=== PATIENT | male | born 1970 | race American Indian/Alaskan Native ===

== ENCOUNTER 2021-04-02 05:48 | Day surgery (SDC) | payer OTHER ==
[2021-04-02] MEDS ORDERED: LACTATED RINGERS 1,000 ML ONE (06:48)
[2021-04-02] MEDS ORDERED: propofoL 200 MG/20 ML VIAL IV ONE (07:27)
[2021-04-02] MEDS ORDERED: fentaNYL 100 MCG/2 ML INJ ONE ×2 (07:27→09:37)
[2021-04-02] MEDS ORDERED: LIDOCAINE MPF (2%) 20 MG/1 ML VIAL 5 ML ONE (07:27)
--- NOTE | 2021-04-02 07:33 | Anesthesia Day of Surgery ---
Anesthesia Day of Surgery - Day of Surgery Patient Examined: Yes Patient H&P Reviewed: Yes Patient is NPO: Yes
--- NOTE | 2021-04-02 07:33 | Anesthesia Consultation ---
Anesthesia Consult and Med Hx Date of service: 04/02/21 - Airway Anesthetic Teeth Evaluation: Chipped (#9) ROM Head & Neck: Adequate Mental/Hyoid Distance: Adequate Intubation Access Assessment: Probably Good - Pre-Operative Health Status ASA Pre-Surgery Classification: ASA2 Proposed Anesthetic Plan: General - Pulmonary Hx Smoking: No Hx Sleep Apnea: No (Snores, LEDA PRE SCREEN HIGH RISK) - Cardiovascular System Hx Hypertension: No - Central Nervous System Hx Back Pain: Yes (AND NECK PAIN) Hx Psychiatric Problems: No - Endocrine Hx Renal Disease: No (enlarged prostate) - Hematic Hx Anemia: No Hx Sickle Cell Disease: No - Other Systems Hx Alcohol Use: Yes (WINE COOLERS ON WEEKEND) Hx Substance Use: No Hx Cancer: No Hx Obesity: Yes (BMI 34.9)
[2021-04-02] MEDS ORDERED: BUPIVACAINE/PF (0.25%) 2.5 MG/ML 30 ML VIAL INFILTRATI ONE (07:43)
[2021-04-02] MEDS ORDERED: LACTATED RINGERS 1,000 ML IV SCH (08:00)
[2021-04-02] MEDS ORDERED: FAMOTIDINE 20 MG/2 ML INJ IV NR (08:00)
[2021-04-02] MEDS ORDERED: MIDAZOLAM 2 MG/2 ML INJ IV NR (08:00)
[2021-04-02] MEDS ORDERED: ceFAZolin/STERILE WATER 2 GM/20 ML SYRINGE IV NR (08:10)
[2021-04-02] MEDS ORDERED: ceFAZolin/Water 2 GM/20 ML 2 GM/20 ML SYRINGE IV ONE (08:11)
[2021-04-02] MEDS ORDERED: ONDANSETRON 4 MG/2 ML INJ ONE (08:33)
[2021-04-02] MEDS ORDERED: KETOROLAC 30 MG/1 ML INJ ONE (08:33)
[2021-04-02] MEDS ORDERED: dexAMETHasone 20 MG/5 ML VIAL ONE (08:33)
--- NOTE | 2021-04-02 10:29 | Post Operative Note ---
Date of procedure: 04/02/21 Pre-op diagnosis: huge spermatocele Post-op diagnosis: same Findings: huge mass Procedure: excision and repair Anesthesia: CORY Surgeon: KATELYN HYDE Estimated blood loss: minimal Pathology: list (sac) Specimen disposition: to lab Condition: stable
--- NOTE | 2021-04-02 10:31 | Discharge Summary ---
Short Stay Discharge Plan Activity: other (no straining ) Weight Bearing Status: Full Weight Bearing Diet: low fat, low cholesterol, low salt Wound: open to air, other (use 4 x4 s support ) Durable Medical Equipment Needed Upon Discharge: other (ice packs in rr and x 24 hrs ) Additional Instructions: HOME WITH DRAIN. Follow up with: PRIMARY CARE, [Primary Care Provider] - 7 Days KATELYN HYDE MD [Staff Physician] - 3 Days Forms: Outpatient Surgery DC Inst.
[2021-04-02 11:12] VITALS: BP 118/60
--- NOTE | 2021-04-02 11:51 | Operative Report ---
DATE OF SURGERY: 04/02/2021 PREOPERATIVE DIAGNOSES: Huge left scrotal mass, multiloculated spermatocele. POSTOPERATIVE DIAGNOSES: Huge left scrotal mass, multiloculated spermatocele. PROCEDURE: Repair and excision of left spermatocelectomy. SURGEON: Lamont Sepulveda M.D. ANESTHESIA: General. FINDINGS: This is a gentleman with an 18 cm mass multiloculated. It is tense on the left side. He now presents for treatment. DESCRIPTION OF PROCEDURE: The patient was brought to operating room and placed on the operating table. Following induction of anesthesia, placed in supine position, prepped and draped in usual sterile fashion. An oblique incision was made and larger vessels were cauterized or tied as needed. This is a chronic condition, it extended all the way up towards the groin. It is a multiloculated spermatocele very thickened fascia. We went layer by layer and then we dissected the spermatocele. The vessels were wrapped medially which were protected. Once we delivered the mass, we opened up the spermatocele and excised most of the sac as much as we could safely. We opened up the tunica vaginalis. The testis was normal. We oversewed some of the excess sac. The patient tolerated the procedure well. No significant complications. No significant bleeding. Any small vessels were tied or cauterized. At this point, 0.5-inch Nneka was placed and the scrotum and secured, thickened fascia was closed with a 2-0 chromic, skin with 2-0 chromic. The patient tolerated the procedure well. Minimal blood loss, less than 10 mL. TID: [id number] RECEIPT: [id number] TYLER/DELORES
--- NOTE | 2021-04-02 18:38 | Post Anesthesia Evaluation ---
- Post Anesthesia Evaluation Patient Participated: Yes Airway Patent: Yes Stable Respiratory Function: Yes Nausea/Vomiting: No Temp > 96.8F: Yes Pain Manageable: Yes Adequeate Hydration: Yes Anesthesia Complications: No Block Receding Appropriately: Not Applicable Patient on Ventilator: No
== END 2021-04-02 11:55 | disposition home or self-care (01) ==
LOC: OR 05:48
PROVIDERS: ATTEND Urology
DX: N43.42 Spermatocele of epididymis, multiple (principal); N50.89 Other specified disorders of the male genital organs; E66.9 Obesity, unspecified; Z72.89 Other problems related to lifestyle; Z20.822 Contact with and (suspected) exposure to COVID-19
CPT/HCPCS: 54840; 88304; J0690; J1100; J1885; J2250; J2405; J2704; J3010; J3490; J7120; U0003